=== PATIENT | male | born 1955 | race Caucasian/White ===

== ENCOUNTER 2018-02-23 07:53 | Inpatient (IN) | payer MEDICAID, MEDICARE ==
[2018-02-23 08:03] VITALS: O2SAT 100
--- NOTE | 2018-02-23 08:09 | ED PDOC ---
Psych Transfer Clearance - Clearance Statement Clearance Statement: Reviewed vital signs, lab results and transfer papers. Patient clinically stable for psychiatric admission. 'pt cleared kailyn syed
[2018-02-23] MEDS ORDERED: Alum-Mag Hydrox-Simethicone Susp (30 mL) PO PRN (08:47)
[2018-02-23] MEDS ORDERED: Magnesium Hydroxide Susp 30 ml UD PO PRN (08:47)
[2018-02-23] MEDS ORDERED: Bismuth Subsalicylate 262 mg/15 ml Sus (240 ml) PO PRN (08:47)
--- NOTE | 2018-02-23 12:00 | PCM.PSYCH ---
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 A + O x 3. PPHx: H/o treatment w/ Zoloft, but stopped taking it for unclear reasons; patient unable to explain why he stopped taking it. No history of psychiatric admission or suicide attempts. 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, HTN, HLD, Seizure disorder PSHx: Right frontal craniotomy, tonsilectomy, unknown right eye procedure FHx: Diabetes Social: Denies tobacco, EtOH or illicit drug use; lives w/ and daughter Current Medications: Active Medications Generic Name Dose Route Start Last Admin Trade Name Freq PRN Reason Stop Dose Admin Acetaminophen 650 mg 02/23/18 08:47 Tylenol 325mg Tab PO Q4 PRN Pain, moderate (4-7) Al Hydrox/Mg Hydrox/Simethicone 30 ml 02/23/18 08:47 Maalox Plus 30 Ml PO Q4 PRN Dyspepsia Bismuth Subsalicylate 524 mg 02/23/18 08:47 Pepto-Bismol PO Q4 PRN Diarrhea Lorazepam 0.5 mg 02/23/18 08:47 Ativan PO 03/09/18 08:48 HS PRN Insomnia Lorazepam 0.5 mg 02/23/18 08:47 Ativan PO 03/09/18 08:48 Q6 PRN Anixety/Agitation Magnesium Hydroxide 30 ml 02/23/18 08:47 Milk Of Magnesia PO HS PRN Constipation Past Psychiatric History - Past Psychiatric History Pertinent Medical Hx (Current Medical&Sleep Prob, Allergies): Allergies Allergy/AdvReac Type Severity Reaction Status Date / Time No Known Allergies Allergy Verified 02/22/18 21:12 Divalproex [Depakote DR] 500 mg PO BID 03/31/17 Levemir Flexpen 30 units SQ HS 03/31/17 Losartan [Cozaar] 100 mg PO DAILY 03/31/17 Oxcarbazepine [Trileptal] 150 mg PO DAILY 03/31/17 PrednisoLONE 1% [Pred Forte 1% Opht Susp] 1 drop OU DAILY 03/31/17 Aspirin [Aspirin Chewable] 81 mg PO DAILY #30 ctb 04/04/17 Docusate [Colace] 100 mg PO HS 05/24/17 Latanoprost 0.005% Opht [Xalatan Opht] 1 drop OU HS 05/24/17 Multivitamins [Hexavitamin] 1 tab PO DAILY tab 05/28/17 SITagliptin [Januvia] 100 mg PO DAILY tab 05/28/17 Sertraline [Zoloft] 50 mg PO DAILY tab 05/28/17 amLODIPine [Norvasc] 10 mg PO DAILY tab 05/28/17 metFORMIN ER [glucoPHAGE XR] 1,[address] 05/28/17 Atorvastatin Calcium 40 mg PO DAILY 07/13/17 Bisacodyl [Correctol] 5 mg PO DAILY 07/13/17 Dorzolamide 2% [Trusopt] 1 drop OU TID 07/13/17 Insulin Glargine,Hum.rec.anlog [Basaglar Kwikpen U-100] 30 units SC HS 07/13/17 Review of Systems - Psychiatric Psychiatric: As Per HPI, Abnormal Sleep Pattern, Anxiety, Behavioral Changes, Depression, Difficulty Concentrating, Memory Loss, Mood Swings, Suicidal Ideation Mental Status Examination - Personal Presentation Personal Presentation: Looks older than stated age - Affect Affect: Constricted, Depressed - Motor Activity Motor Activity: Calm - Reliability in Providing Information Reliability in Providing Information: Poor, due to cognitve impairment - Speech Speech: Coherent - Mood Mood: Depressed, Anxious - Formal Thought Process Formal Thought Process: Hallucinations - Hallucinations/Delusions Hallucinations: Auditory - Obsessions/Compulsions Obsessions: No Compulsions: No - Cognitive Functions Orientation: Person, Place, Situation, Time Sensorium: Alert Attention/Concentration: Attentive Judgement: Intact, as evidence by: Insight regarding need for hospitalization Memory: Recent intact, as evidence by: Ability to recall events of the day - Risk Risk: Suicidal, Diminished functioning - Strength & Assets Inventory Strength & Assets Inventory: Family support - Limitations Limitations: Decreased memory, recent DSM 5 DX - DSM 5 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
[2018-02-23] MEDS ORDERED: Divalproex 500 mg DR(BID formulation) PO SCH (12:30)
[2018-02-23] MEDS: Dorzolamide 2% Ophth Soln OU SCH ×2 (14:53→17:24)
[2018-02-23] MEDS: Multivitamin With Minerals Tab PO SCH (15:03)
[2018-02-23] MEDS: Divalproex 500 mg ER (ONCE DAILY formulation) PO SCH (15:04)
--- NOTE | 2018-02-23 18:59 | PCM.BM ---
<IvethFelicita - Last Filed: 02/23/18 19:06> Treatment Plan Problems - Problems identified on initial assessmt helplessness/hopelessness Date Initiated: 02/23/18 Time Initiated: 19:01 Assessment reference: HP, NA Status: Active suicidal ideation Date Initiated: 02/23/18 Time Initiated: 19:07 Assessment reference: HP, NA Status: Active Treatment assets and liabiliti Patient Assests: cooperative, educated, cognitively intact Patient Liabilities: financial problems, relationship conflicts, medical problems - Milieu Protocol Maintain good personal hygiene: daily Remind patient to perform daily oral care , daily Assist patient to perform ADL's Conduct patient checks and document Observation sheet: Q15 minutes Maintain personal safety: every shift Educate patient to report safety concerns to staff, every shift Monitor environment for contraband/sharps Medication safety: Monitor for expected outcome, potential side effects: every shift, Assess barriers to learning: every shift, Assess readiness for medication education: every shift Milieu Narrative: Major Depressive Disorder w/ Psychotic Features -Admit to psychiatry unit -Restart Zoloft 50 mg PO Daily -Start Risperdal 0.25 mg PO HS -Medicine consult -Neurology consult -Obtain collateral history -Disposition planning Discharge/Continuing Care - Treatment Team Participation Patient/Family/SO Statement: Major Depressive Disorder w/ Psychotic Features -Admit to psychiatry unit -Restart Zoloft 50 mg PO Daily -Start Risperdal 0.25 mg PO HS -Medicine consult -Neurology consult -Obtain collateral history -Disposition planning <Jolly Arcos - Last Filed: 02/24/18 08:51> - Diagnosis (1) Major depressive disorder with psychotic features Status: Acute Interventions: Medication management, Individual and group therapy, Psychoeducation 02/24/18 08:51 <Minnie Gerardo - Last Filed: 02/25/18 15:01> Family Contact Family involvement: Family/SO is involved Family contact: Patient agrees to contact, Family has been contacted by patient , Telephone contact initiated by staff Family contact name: Laquita - spouse Family contacted how many times per week?: 2 Discharge/Continuing Care - Education Needs Education Needs: Family Medication, Family Diagnosis/Disease Process, Family Coping Skills, Family Community resources, Family Activities of Daily Living, Family Nutrition, Family Uses of Medical Equipment, Family Health Practices/ Safety, Family Personal Hygiene/Grooming, Family Aftercare Safety Plan, Patient Medication, Patient Diagnosis/Disease Process, Patient Coping Skills, Patient Community resources, Patient Activities of Daily Living, Patient Nutrition, Patient Uses of Medical Equipment, Patient Health Practices/Safety, Patient Personal Hygiene/Grooming, Patient Aftercare Safety Plan - Discharge Discharge Criteria: Tolerates medication w/o severe side effects, Free of Suicidal thoughts, Normal sleep pattern, Ability to care for self, Reduction of target symptoms Discharge to:: Home, With Family - Additional Comments 02/25/18 14:49 Pt seen and discussed in team meeting. Reason for hospitalization reviewed and discussed. Pt reported feeling depressed and having suicide thoughts in the context of his physical disabilities. Pt's social and medical issues reviewed and discussed. Pt's medications reviewed. Tx plan reviewed and discussed, pt is agreeable. SW to continue to follow case. - Treatment Team Participation Discussed with Family/SO: No Was Patient/Family/SO present at Treatment Team Meeting: Yes
[2018-02-24 07:42] LABS: HEMOGLOBIN 10.6 g/dL (12.0-18.0); MEAN CELL VOLUME 90.4 fl (80.0-94.0); MEAN CORPUSCULAR HEMOGLOBIN 31.6 pg (27.0-31.0); MEAN CORPUSCULAR HGB CONC 34.9 g/dL (33.0-37.0); RBC 3.35 Mil/uL (4.40-5.90); WHITE BLOOD COUNT 5.1 K/uL (4.8-10.8)
[2018-02-24 07:48] LABS: ALB/GLOB RATIO 1.6 (1.0-2.1); ALBUMIN 3.6 g/dL (3.5-5.0); ALT/SGPT 30 U/L (21-72); AST/SGOT 20 U/L (17-59); BLOOD UREA NITROGEN 24 mg/dl (9-20); CALCIUM 9.4 mg/dL (8.4-10.2); GFR NON-AFRICAN AMERICAN > 60; HDL CHOLESTEROL 47 MG/DL (30-70)
[2018-02-24 07:54] LABS: VALPROIC ACID 30.2 ug/mL (50.0-100.0)
[2018-02-24 07:59] LABS: LDL CHOLESTEROL 40 mg/dL (0-129)
[2018-02-24 08:02] LABS: T4 5.64 ug/dl (5.5-11.0)
[2018-02-24] MEDS: Divalproex 500 mg ER (ONCE DAILY formulation) PO SCH (08:12)
[2018-02-24] MEDS: Multivitamin With Minerals Tab PO SCH (08:13)
[2018-02-24] MEDS: Dorzolamide 2% Ophth Soln OU SCH ×3 (08:14→17:07)
--- NOTE | 2018-02-24 09:07 | PCM.PYCHPN ---
Psychiatric Progress Note - Psychiatric Progress Note Patient seen today, length of contact: Pt evaluated, case discussed w/ team Patient Chief Complaint: "I was having suicidal thoughts." Problems Identified/Issues Discussed: Patient reports that he continues to feel depressed, but is able to contract for safety at this time and denies acute suicidal ideation/plan/intent. He denies acute AH. He denies adverse effects to medication. He continues to have constricted/depressed affect. Medication Change: No Medical Record Reviewed: Yes Consults ordered or reviewed: Medicine consult, Neurology consult Mental Status Examination - Cognitive Function Orientation: Person, Place, Situation, Time Association: WNL Decription of patient's judgement and insights: Fair I/J - Mood Mood: Depressed, Anxious - Affect Affect: Constricted, Depressed - Formal Thought Process Formal Thought Process: No Impairment Psychotic Thoughts and Behaviors: Denies acute AH/VH/paranoia - Suicidal Ideation Suicidal Ideation: No - Homicidal Ideation Homicidal Ideation: No Goal/Treatment Plan - Goal/Treatment Plan Need for Continued Stay: Remain at risks for inpatient hospitalization, Severe depression anxiety, Severe functional impairment Progress Toward Problem(s) and Goals/Treatment Plan: Major Depressive Disorder w/ Psychotic Features -Continue Zoloft 50 mg PO Daily -Continue Risperdal 0.25 mg PO HS -Medicine consult -Neurology consult -PT/OT -Obtain collateral history -Disposition planning Estimated Date of D/C: 03/02/18
[2018-02-24 09:38] LABS: URINE BILIRUBIN NEGATIVE (NEGATIVE); URINE BLOOD NEGATIVE (NEGATIVE); URINE CLARITY CLEAR (Clear); URINE COLOR YELLOW (YELLOW); URINE GLUCOSE (UA) 50 mg/dL (Normal); URINE LEUKOCYTE ESTERASE NEG Leu/uL (Negative); URINE PROTEIN NEGATIVE (NEGATIVE); URINE UROBILINOGEN 0.2-1.0 mg/dL (0.2-1.0)
[2018-02-24] MEDS: Insulin Regular 100 units/ml SC SCH ×3 (12:22→21:09)
[2018-02-24 13:45] VITALS: BMI 28.1
[2018-02-24 18:53] LABS: FOLATE 9.8 ng/mL
[2018-02-24] MEDS: Insulin Detemir 100 Units/ml Inj SC SCH (21:08)
[2018-02-24] MEDS ORDERED: INSULIN GLARGINE HUM REC ANLOG 30 UNIT SC SCH (22:00)
--- NOTE | 2018-02-24 22:16 | CP.PCM.CON ---
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 A + O x 3. PPHx: H/o treatment w/ Zoloft, but stopped taking it for unclear reasons; patient unable to explain why he stopped taking it. No history of psychiatric admission or suicide attempts. 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 No deficits noted. Gait normal. +2 dtr ul and llbl.Toes downgoing. Past Patient History - Infectious Disease Hx of Infectious Diseases: None - Tetanus Immunizations Tetanus Immunization: Unknown - Past Medical History & Family History Past Medical History?: Yes - Past Social History Smoking Status: Never Smoked - CARDIAC Hx Hypertension: Yes - PULMONARY Hx Respiratory Disorders: No - NEUROLOGICAL HX Cerebrovascular Accident: Yes - HEENT Hx HEENT Problems: Yes (right eye blind) - RENAL Hx Chronic Kidney Disease: No - ENDOCRINE/METABOLIC Hx Endocrine Disorders: Yes Hx Diabetes Mellitus Type 2: Yes - HEMATOLOGICAL/ONCOLOGICAL Hx Blood Disorders: No Hx Cancer: No Hx Human Immunodeficiency Virus (HIV): No - INTEGUMENTARY Hx Dermatological Problems: No - MUSCULOSKELETAL/RHEUMATOLOGICAL Hx Arthritis: Yes (BACK) Hx Falls: No Hx Unsteady Gait: Yes (left side weak) - GASTROINTESTINAL Hx Gastrointestinal Disorders: No HX Swallowing Problems: No - GENITOURINARY/GYNECOLOGICAL Hx Genitourinary Disorders: Yes Hx Incontinence: Yes Hx Sexually Transmitted Disorders: No - PSYCHIATRIC Hx Anxiety: Yes Hx Depression: Yes Hx Physical Abuse: No Hx Sexual Abuse: No Hx Substance Use: No - SURGICAL HISTORY Hx Surgeries: Yes Hx Tonsillectomy: Yes Hx Vascular Surgery: Yes (right brain) - ANESTHESIA Hx Anesthesia: Yes Hx Anesthesia Reactions: Yes (vomiting) Hx Malignant Hyperthermia: No Meds Allergies/Adverse Reactions: Allergies Allergy/AdvReac Type Severity Reaction Status Date / Time No Known Allergies Allergy Verified 02/22/18 21:12 - Medications Medications: Current Medications Acetaminophen (Tylenol 325mg Tab) 650 mg PO Q4 PRN PRN Reason: Pain, moderate (4-7) Last Admin: 02/24/18 12:20 Dose: 650 mg Al Hydrox/Mg Hydrox/Simethicone (Maalox Plus 30 Ml) 30 ml PO Q4 PRN PRN Reason: Dyspepsia Amlodipine Besylate (Norvasc) 10 mg PO DAILY [facility] Last Admin: 02/24/18 08:13 Dose: 10 mg Aspirin (Aspirin Chewable) 81 mg PO DAILY [facility] Last Admin: 02/24/18 08:10 Dose: 81 mg Atorvastatin Calcium (Lipitor) 10 mg PO DAILY [facility] Last Admin: 02/24/18 08:13 Dose: 10 mg Bismuth Subsalicylate (Pepto-Bismol) 524 mg PO Q4 PRN PRN Reason: Diarrhea Divalproex Sodium (Depakote Er(Once Daily)) 500 mg PO DAILY [facility] Last Admin: 02/24/18 08:12 Dose: 500 mg Docusate Sodium (Colace) 100 mg PO HS [facility] Last Admin: 02/24/18 21:03 Dose: 100 mg Dorzolamide HCl (Trusopt) 1 drop OU TID [facility] Last Admin: 02/24/18 17:07 Dose: 1 drop Insulin Detemir (Levemir) 30 units SC HS [facility] Last Admin: 02/24/18 21:08 Dose: 30 units Insulin Human Regular (Humulin R) 0 units SC ACHS [facility] PRN Reason: Protocol Last Admin: 02/24/18 21:09 Dose: Not Given Lorazepam (Ativan) 0.5 mg PO HS PRN PRN Reason: Insomnia Stop: 03/09/18 08:48 Lorazepam (Ativan) 0.5 mg PO Q6 PRN PRN Reason: Anixety/Agitation Stop: 03/09/18 08:48 Losartan Potassium (Cozaar) 100 mg PO DAILY [facility] Last Admin: 02/24/18 08:10 Dose: 100 mg Magnesium Hydroxide (Milk Of Magnesia) 30 ml PO HS PRN PRN Reason: Constipation Metformin HCl (Glucophage) 500 mg PO BIDWM [facility] Last Admin: 02/24/18 17:04 Dose: 500 mg Multivitamins/Minerals (Therapeutic-M Tab) 1 tab PO DAILY [facility] Last Admin: 02/24/18 08:13 Dose: 1 tab Oxcarbazepine (Trileptal) 300 mg PO BID [facility] Last Admin: 02/24/18 17:06 Dose: 300 mg Risperidone (Risperdal Tab) 0.25 mg PO HS [facility] Last Admin: 02/24/18 21:03 Dose: 0.25 mg Sertraline HCl (Zoloft) 50 mg PO DAILY [facility] Last Admin: 02/24/18 08:15 Dose: 50 mg Sitagliptin Phosphate (Januvia) 100 mg PO DAILY [facility] Last Admin: 02/24/18 08:12 Dose: 100 mg Results - Vital Signs Recent Vital Signs: Last Vital Signs Temp 99 F 02/24/18 15:46 Pulse 90 02/24/18 15:46 Resp 18 02/24/18 15:46 BP 135/82 02/24/18 15:46 Pulse Ox 100 02/23/18 08:01 - Labs Result Diagrams: 02/24/18 07:14 02/24/18 07:14 Labs: Laboratory Results - last 24 hr 02/23/18 02/24/18 02/24/18 09:29 07:14 07:14 WBC 5.1 RBC 3.35 L Hgb 10.6 L Hct 30.3 L MCV 90.4 MCH 31.6 H MCHC 34.9 RDW 14.0 Plt Count 182 Sodium 139 Potassium 4.2 Chloride 103 Carbon Dioxide 30 Anion Gap 10 BUN 24 H Creatinine 0.6 L Est GFR ( Amer) > 60 Est GFR (Non-Af Amer) > 60 POC Glucose (mg/dL) Random Glucose 184 H Hemoglobin A1c Calcium 9.4 Total Bilirubin 0.2 AST 20 ALT 30 Alkaline Phosphatase 50 Total Protein 5.8 L Albumin 3.6 Globulin 2.2 Albumin/Globulin Ratio 1.6 Triglycerides 165 H Cholesterol 116 LDL Cholesterol Direct 40 HDL Cholesterol 47 Vitamin B12 550 25-OH Vitamin D Total Folate 9.8 Free T4 Thyroxine (T4) 5.64 TSH 3rd Generation 2.86 Urine Color Yellow Urine Clarity Clear Urine pH 5.0 Ur Specific Brethren 1.018 Urine Protein Negative Urine Glucose (UA) 50 Urine Ketones Trace Urine Blood Negative Urine Nitrate Negative Urine Bilirubin Negative Urine Urobilinogen 0.2-1.0 Ur Leukocyte Esterase Neg Urine RBC (Auto) < 1 Urine Microscopic WBC 1 Valproic Acid RPR 02/24/18 02/24/18 02/24/18 07:14 07:14 07:20 WBC RBC Hgb Hct MCV MCH MCHC RDW Plt Count Sodium Potassium Chloride Carbon Dioxide Anion Gap BUN Creatinine Est GFR ( Amer) Est GFR (Non-Af Amer) POC Glucose (mg/dL) Random Glucose Hemoglobin A1c 6.1 Calcium Total Bilirubin AST ALT Alkaline Phosphatase Total Protein Albumin Globulin Albumin/Globulin Ratio Triglycerides Cholesterol LDL Cholesterol Direct HDL Cholesterol Vitamin B12 25-OH Vitamin D Total < 12.8 L Folate Free T4 0.81 Thyroxine (T4) TSH 3rd Generation Urine Color Urine Clarity Urine pH Ur Specific Brethren Urine Protein Urine Glucose (UA) Urine Ketones Urine Blood Urine Nitrate Urine Bilirubin Urine Urobilinogen Ur Leukocyte Esterase Urine RBC (Auto) Urine Microscopic WBC Valproic Acid 30.2 L RPR 02/24/18 02/24/18 02/24/18 07:20 09:24 12:20 WBC RBC Hgb Hct MCV MCH MCHC RDW Plt Count Sodium Potassium Chloride Carbon Dioxide Anion Gap BUN Creatinine Est GFR ( Amer) Est GFR (Non-Af Amer) POC Glucose (mg/dL) 263 H 280 H Random Glucose Hemoglobin A1c Calcium Total Bilirubin AST ALT Alkaline Phosphatase Total Protein Albumin Globulin Albumin/Globulin Ratio Triglycerides Cholesterol LDL Cholesterol Direct HDL Cholesterol Vitamin B12 25-OH Vitamin D Total Folate Free T4 Thyroxine (T4) TSH 3rd Generation Urine Color Urine Clarity Urine pH Ur Specific Brethren Urine Protein Urine Glucose (UA) Urine Ketones Urine Blood Urine Nitrate Urine Bilirubin Urine Urobilinogen Ur Leukocyte Esterase Urine RBC (Auto) Urine Microscopic WBC Valproic Acid RPR Nonreactive 02/24/18 02/24/18 15:41 20:08 WBC RBC Hgb Hct MCV MCH MCHC RDW Plt Count Sodium Potassium Chloride Carbon Dioxide Anion Gap BUN Creatinine Est GFR ( Amer) Est GFR (Non-Af Amer) POC Glucose (mg/dL) 175 H 224 H Random Glucose Hemoglobin A1c Calcium Total Bilirubin AST ALT Alkaline Phosphatase Total Protein Albumin Globulin Albumin/Globulin Ratio Triglycerides Cholesterol LDL Cholesterol Direct HDL Cholesterol Vitamin B12 25-OH Vitamin D Total Folate Free T4 Thyroxine (T4) TSH 3rd Generation Urine Color Urine Clarity Urine pH Ur Specific Brethren Urine Protein Urine Glucose (UA) Urine Ketones Urine Blood Urine Nitrate Urine Bilirubin Urine Urobilinogen Ur Leukocyte Esterase Urine RBC (Auto) Urine Microscopic WBC Valproic Acid RPR Assessment & Plan - Assessment and Plan (Free Text) Assessment: 62 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 Plan: 1. Continue depakote and trileptal. 2. Depakote and trileptal levels. 3. EEG. Thank you Dr iglesias
[2018-02-25] MEDS: Dorzolamide 2% Ophth Soln OU SCH ×3 (08:16→16:06)
[2018-02-25] MEDS: Divalproex 500 mg ER (ONCE DAILY formulation) PO SCH (08:19)
[2018-02-25] MEDS: Insulin Regular 100 units/ml SC SCH ×4 (08:20→21:14)
[2018-02-25] MEDS: Multivitamin With Minerals Tab PO SCH (08:22)
--- NOTE | 2018-02-25 09:25 | CON ---
DATE: 02/24/2018 INITIAL CONSULTATION HISTORY OF PRESENT ILLNESS: This is a 62-year-old male with a history of multiple medical problems who was admitted to psychiatric green for depression. Medical consultation was called for medical followup while the patient is in the psychiatry floor. The patient had history of intracerebral bleed, status post craniotomy. The patient is legally blind in both eyes. The patient has a history of fall with inability to walk for one year. The patient denied having any chest pain, shortness of breath, nausea, vomiting, or GI symptoms. Other review of systems is negative. ALLERGIES: NO KNOWN ALLERGIES. MEDICATIONS: Reviewed as per MAR. PAST MEDICAL HISTORY: Type 2 diabetes mellitus, status post craniotomy for intracerebral bleeding, hypertension, hypercholesterolemia, legally blind. SOCIAL HISTORY: No history of smoking, EtOH, or substance abuse. FAMILY HISTORY: Noncontributory. PHYSICAL EXAMINATION: GENERAL: The patient is in bed, not in any cardiopulmonary distress. VITAL SIGNS: Blood pressure 121/85, temperature 99, respiratory rate 18, and pulse 86. HEENT: The patient is legally blind in both eyes. Normal-appearing mucosa of the conjunctivae, oropharynx, and nasal membrane mucosa. NECK: Supple. No JVD. No carotid bruit. No lymph node. No thyromegaly. CHEST AND LUNGS: Bilateral symmetrical expansion. Good air exchange. No rales. No rhonchi. CARDIOVASCULAR SYSTEM: PMI not localized. S1, S2. No additional sounds. ABDOMEN: Normoactive bowel sounds. No tenderness. No organomegaly. No masses. EXTREMITIES: No cyanosis, no clubbing, no edema. There is left upper extremity weakness compared to the right, and there is equal strength of both lower extremities, 3 to 4/5. ASSESSMENT: Type 2 diabetes mellitus, legally blind, status post craniotomy for intracerebral bleeding, history of depression. PLAN: Continue current medication. We will resume the patient's medications at home. Accu-Cheks with insulin coverage. Physical therapy. We will follow up with you. Vitor Dover MD
[2018-02-25] MEDS ORDERED: Valproic Acid 250 mg/5 ml UD Cup PO ONE (10:00)
--- NOTE | 2018-02-25 10:45 | PCM.PYCHPN ---
Psychiatric Progress Note - Psychiatric Progress Note Patient seen today, length of contact: Pt evaluated, case discussed w/ team, chart reviewed Patient Chief Complaint: "I was having suicidal thoughts." Problems Identified/Issues Discussed: Patient reports that he continues to feel depressed, but denies acute suicidal ideation/plan/intent. He denies acute AH. He denies adverse effects to medication. He continues to have constricted/depressed affect. Medication Change: No Medical Record Reviewed: Yes Consults ordered or reviewed: Medicine consult, Neurology consult Mental Status Examination - Cognitive Function Orientation: Person, Place, Situation, Time Association: WNL Decription of patient's judgement and insights: Fair I/J - Mood Mood: Depressed, Anxious - Affect Affect: Constricted, Depressed - Formal Thought Process Formal Thought Process: No Impairment Psychotic Thoughts and Behaviors: Denies acute AH/VH/paranoia - Suicidal Ideation Suicidal Ideation: No - Homicidal Ideation Homicidal Ideation: No Goal/Treatment Plan - Goal/Treatment Plan Need for Continued Stay: Remain at risks for inpatient hospitalization, Severe depression anxiety, Severe functional impairment Progress Toward Problem(s) and Goals/Treatment Plan: Major Depressive Disorder w/ Psychotic Features -Continue Zoloft 50 mg PO Daily -Continue Risperdal 0.25 mg PO HS -Medicine consult -Neurology consult -PT/OT -Obtain collateral history -Disposition planning Estimated Date of D/C: 03/01/18
--- NOTE | 2018-02-25 10:47 | CP.PCM.PN ---
Subjective - Date & Time of Evaluation Date of Evaluation: 02/25/18 Time of Evaluation: 10:43 - Subjective Subjective: Mr. Nugent was seen and examined at the bedside. He is alert,oriented x 3. He is able to verbalize the reason why he is being admitted. He denies any headache, dizziness, nausea. He follows simple commands. There was no untoward events overnight. Objective - Vital Signs/Intake and Output Vital Signs (last 24 hours): Temp Pulse Resp BP Pulse Ox 97.1 F L 82 19 129/80 100 02/25/18 05:48 02/25/18 08:21 02/25/18 05:48 02/25/18 08:21 02/23/18 08:01 - Medications Medications: Current Medications Acetaminophen (Tylenol 325mg Tab) 650 mg PO Q4 PRN PRN Reason: Pain, moderate (4-7) Last Admin: 02/24/18 22:43 Dose: 650 mg Al Hydrox/Mg Hydrox/Simethicone (Maalox Plus 30 Ml) 30 ml PO Q4 PRN PRN Reason: Dyspepsia Amlodipine Besylate (Norvasc) 10 mg PO DAILY [facility] Last Admin: 02/25/18 08:21 Dose: 10 mg Aspirin (Aspirin Chewable) 81 mg PO DAILY [facility] Last Admin: 02/25/18 08:18 Dose: 81 mg Atorvastatin Calcium (Lipitor) 10 mg PO DAILY [facility] Last Admin: 02/25/18 08:21 Dose: 10 mg Bismuth Subsalicylate (Pepto-Bismol) 524 mg PO Q4 PRN PRN Reason: Diarrhea Divalproex Sodium (Depakote Er(Once Daily)) 500 mg PO DAILY [facility] Last Admin: 02/25/18 08:19 Dose: 500 mg Docusate Sodium (Colace) 100 mg PO HS [facility] Last Admin: 02/24/18 21:03 Dose: 100 mg Dorzolamide HCl (Trusopt) 1 drop OU TID [facility] Last Admin: 02/25/18 08:16 Dose: 1 drop Insulin Detemir (Levemir) 30 units SC HS [facility] Last Admin: 02/24/18 21:08 Dose: 30 units Insulin Human Regular (Humulin R) 0 units SC [facility] PRN Reason: Protocol Last Admin: 02/25/18 08:20 Dose: 2 units Lorazepam (Ativan) 0.5 mg PO HS PRN PRN Reason: Insomnia Stop: 03/09/18 08:48 Lorazepam (Ativan) 0.5 mg PO Q6 PRN PRN Reason: Anixety/Agitation Stop: 03/09/18 08:48 Losartan Potassium (Cozaar) 100 mg PO DAILY [facility] Last Admin: 02/25/18 08:18 Dose: 100 mg Magnesium Hydroxide (Milk Of Magnesia) 30 ml PO HS PRN PRN Reason: Constipation Metformin HCl (Glucophage) 500 mg PO BIDWM [facility] Last Admin: 02/25/18 08:19 Dose: 500 mg Multivitamins/Minerals (Therapeutic-M Tab) 1 tab PO DAILY [facility] Last Admin: 02/25/18 08:22 Dose: 1 tab Oxcarbazepine (Trileptal) 300 mg PO BID [facility] Last Admin: 02/25/18 08:22 Dose: 300 mg Risperidone (Risperdal Tab) 0.25 mg PO [facility] Last Admin: 02/24/18 21:03 Dose: 0.25 mg Sertraline HCl (Zoloft) 50 mg PO DAILY [facility] Last Admin: 02/25/18 08:22 Dose: 50 mg Sitagliptin Phosphate (Januvia) 100 mg PO DAILY [facility] Last Admin: 02/25/18 08:21 Dose: 100 mg - Labs Labs: 02/24/18 07:14 02/24/18 07:14 - Constitutional Appears: No Acute Distress - Head Exam Head Exam: NORMAL INSPECTION - Eye Exam Pupil Exam: PERRL - Neurological Exam Neurological Exam: Alert, Awake, Oriented x3 Neuro motor strength exam: Left Upper Extremity: 4, Right Upper Extremity: 4, Left Lower Extremity: 4, Right Lower Extremity: 4 Additional comments: alert, oriented, follows commands. Assessment and Plan (1) Seizure Assessment & Plan: Continue all current medical regimen. Recommend depakote 1000 mg PO for one dose , hydration, EEG Status: Acute
--- NOTE | 2018-02-25 13:09 | CP.PCM.CON ---
History of Present Illness - History of Present Illness History of Present Illness: Pt is a 62 year old male admitted to [facility] and referred to the telegraphic typewriter operator for evaluation. Only portions of the DRS was administered due to patient's visual deficits. Pt's Attention skills, Initiation skills and conceptualization skills fell in the Deficient Range. Memory skills fell within normal limits. Construction skills were not administered. Deficits in cognition were evident- particularly conceptualization, and initation. Note, pt reported a CVA last year likely influencing the above. Thank you for this referral, Dr. Marmolejo Past Patient History - Infectious Disease Hx of Infectious Diseases: None - Tetanus Immunizations Tetanus Immunization: Unknown - Past Medical History & Family History Past Medical History?: Yes - Past Social History Smoking Status: Never Smoked - CARDIAC Hx Hypertension: Yes - PULMONARY Hx Respiratory Disorders: No - NEUROLOGICAL HX Cerebrovascular Accident: Yes - HEENT Hx HEENT Problems: Yes (right eye blind) - RENAL Hx Chronic Kidney Disease: No - ENDOCRINE/METABOLIC Hx Endocrine Disorders: Yes Hx Diabetes Mellitus Type 2: Yes - HEMATOLOGICAL/ONCOLOGICAL Hx Blood Disorders: No Hx Cancer: No Hx Human Immunodeficiency Virus (HIV): No - INTEGUMENTARY Hx Dermatological Problems: No - MUSCULOSKELETAL/RHEUMATOLOGICAL Hx Arthritis: Yes (BACK) Hx Falls: No Hx Unsteady Gait: Yes (left side weak) - GASTROINTESTINAL Hx Gastrointestinal Disorders: No HX Swallowing Problems: No - GENITOURINARY/GYNECOLOGICAL Hx Genitourinary Disorders: Yes Hx Incontinence: Yes Hx Sexually Transmitted Disorders: No - PSYCHIATRIC Hx Anxiety: Yes Hx Depression: Yes Hx Physical Abuse: No Hx Sexual Abuse: No Hx Substance Use: No - SURGICAL HISTORY Hx Surgeries: Yes Hx Tonsillectomy: Yes Hx Vascular Surgery: Yes (right brain) - ANESTHESIA Hx Anesthesia: Yes Hx Anesthesia Reactions: Yes (vomiting) Hx Malignant Hyperthermia: No Meds Allergies/Adverse Reactions: Allergies Allergy/AdvReac Type Severity Reaction Status Date / Time No Known Allergies Allergy Verified 02/22/18 21:12 - Medications Medications: Current Medications Acetaminophen (Tylenol 325mg Tab) 650 mg PO Q4 PRN PRN Reason: Pain, moderate (4-7) Last Admin: 02/24/18 22:43 Dose: 650 mg Al Hydrox/Mg Hydrox/Simethicone (Maalox Plus 30 Ml) 30 ml PO Q4 PRN PRN Reason: Dyspepsia Amlodipine Besylate (Norvasc) 10 mg PO DAILY [facility] Last Admin: 02/25/18 08:21 Dose: 10 mg Aspirin (Aspirin Chewable) 81 mg PO DAILY [facility] Last Admin: 02/25/18 08:18 Dose: 81 mg Atorvastatin Calcium (Lipitor) 10 mg PO DAILY [facility] Last Admin: 02/25/18 08:21 Dose: 10 mg Bismuth Subsalicylate (Pepto-Bismol) 524 mg PO Q4 PRN PRN Reason: Diarrhea Divalproex Sodium (Depakote Er(Once Daily)) 500 mg PO DAILY [facility] Last Admin: 02/25/18 08:19 Dose: 500 mg Docusate Sodium (Colace) 100 mg PO HS [facility] Last Admin: 02/24/18 21:03 Dose: 100 mg Dorzolamide HCl (Trusopt) 1 drop OU TID [facility] Last Admin: 02/25/18 08:16 Dose: 1 drop Insulin Detemir (Levemir) 30 units SC HS [facility] Last Admin: 02/24/18 21:08 Dose: 30 units Insulin Human Regular (Humulin R) 0 units SC [facility] PRN Reason: Protocol Last Admin: 02/25/18 11:35 Dose: 2 units Lorazepam (Ativan) 0.5 mg PO HS PRN PRN Reason: Insomnia Stop: 03/09/18 08:48 Lorazepam (Ativan) 0.5 mg PO Q6 PRN PRN Reason: Anixety/Agitation Stop: 03/09/18 08:48 Losartan Potassium (Cozaar) 100 mg PO DAILY [facility] Last Admin: 02/25/18 08:18 Dose: 100 mg Magnesium Hydroxide (Milk Of Magnesia) 30 ml PO HS PRN PRN Reason: Constipation Metformin HCl (Glucophage) 500 mg PO BIDWM [facility] Last Admin: 02/25/18 08:19 Dose: 500 mg Multivitamins/Minerals (Therapeutic-M Tab) 1 tab PO DAILY [facility] Last Admin: 02/25/18 08:22 Dose: 1 tab Oxcarbazepine (Trileptal) 300 mg PO BID [facility] Last Admin: 02/25/18 08:22 Dose: 300 mg Risperidone (Risperdal Tab) 0.25 mg PO HS [facility] Last Admin: 02/24/18 21:03 Dose: 0.25 mg Sertraline HCl (Zoloft) 50 mg PO DAILY [facility] Last Admin: 02/25/18 08:22 Dose: 50 mg Sitagliptin Phosphate (Januvia) 100 mg PO DAILY [facility] Last Admin: 02/25/18 08:21 Dose: 100 mg Results - Vital Signs Recent Vital Signs: Last Vital Signs Temp 97.1 F L 02/25/18 05:48 Pulse 82 02/25/18 08:21 Resp 19 02/25/18 05:48 BP 129/80 02/25/18 08:21 Pulse Ox 100 02/23/18 08:01 - Labs Result Diagrams: 02/24/18 07:14 02/24/18 07:14 Labs: Laboratory Results - last 24 hr 02/24/18 02/24/18 02/24/18 07:14 07:14 07:20 POC Glucose (mg/dL) Hemoglobin A1c 6.1 25-OH Vitamin D Total < 12.8 L Folate 9.8 RPR 02/24/18 02/24/18 02/24/18 07:20 15:41 20:08 POC Glucose (mg/dL) 175 H 224 H Hemoglobin A1c 25-OH Vitamin D Total Folate RPR Nonreactive 02/25/18 02/25/18 05:55 11:14 POC Glucose (mg/dL) 161 H 159 H Hemoglobin A1c 25-OH Vitamin D Total Folate RPR
[2018-02-25] MEDS: Insulin Detemir 100 Units/ml Inj SC SCH (21:12)
[2018-02-26] MEDS: Multivitamin With Minerals Tab PO SCH (08:32)
[2018-02-26] MEDS: Dorzolamide 2% Ophth Soln OU SCH ×3 (08:34→16:30)
[2018-02-26] MEDS: Insulin Regular 100 units/ml SC SCH ×4 (08:35→21:21)
[2018-02-26] MEDS: Divalproex 500 mg ER (ONCE DAILY formulation) PO SCH (09:00)
--- NOTE | 2018-02-26 10:20 | PCM.PYCHPN ---
Psychiatric Progress Note - Psychiatric Progress Note Patient seen today, length of contact: Pt evaluated, case discussed w/ team, chart reviewed Patient Chief Complaint: "I was having suicidal thoughts." Problems Identified/Issues Discussed: Patient had poor sleep last night. He reports that he continues to feel depressed, but denies acute suicidal ideation/plan/intent. He denies acute AH. He denies adverse effects to medication. He continues to have constricted/ depressed affect. Medication Change: No Medical Record Reviewed: Yes Consults ordered or reviewed: Medicine consult, Neurology consult Psychology consult: Pt is a 62 year old male admitted to [facility] and referred to the group underwriter for evaluation. Only portions of the DRS was administered due to patient's visual deficits. Pt's Attention skills, Initiation skills and conceptualization skills fell in the Deficient Range. Memory skills fell within normal limits. Construction skills were not administered. Deficits in cognition were evident- particularly conceptualization, and initation. Note, pt reported a CVA last year likely influencing the above. Thank you for this referral, Dr. Marmolejo Mental Status Examination - Cognitive Function Orientation: Person, Place, Situation, Time Memory: Impaired Association: WNL Decription of patient's judgement and insights: Limited I/J - Mood Mood: Depressed, Anxious - Affect Affect: Constricted, Depressed - Formal Thought Process Formal Thought Process: No Impairment Psychotic Thoughts and Behaviors: Denies acute AH/VH/paranoia - Suicidal Ideation Suicidal Ideation: No - Homicidal Ideation Homicidal Ideation: No Goal/Treatment Plan - Goal/Treatment Plan Need for Continued Stay: Remain at risks for inpatient hospitalization, Severe depression anxiety, Severe functional impairment Progress Toward Problem(s) and Goals/Treatment Plan: Major Depressive Disorder w/ Psychotic Features -Continue Zoloft 50 mg PO Daily -Continue Risperdal 0.25 mg PO HS -Medicine consult -Neurology consult -Psychology consult -PT/OT -Disposition planning Estimated Date of D/C: 03/01/18
--- NOTE | 2018-02-26 18:56 | PN ---
DATE: 02/25/2018 SUBJECTIVE: The patient was seen on 02/25/2018 in the psych green. He offered no complaint. PHYSICAL EXAMINATION: VITAL SIGNS: Blood pressure was 120/80, temperature 97.1, respiratory rate 19, and pulse 82. HEENT: Blindness of both eyes. NECK: Supple. No JVD. No carotid bruit. No lymph node. No thyromegaly. CHEST AND LUNGS: Bilateral symmetrical expansion. Good air exchange. No rales, no rhonchi. CARDIOVASCULAR: PMI not localized. S1, S2. No additional sounds. ABDOMEN: Normoactive bowel sounds. No tenderness. No organomegaly. No masses. EXTREMITIES: No cyanosis, no clubbing, no edema. OCCUPATIONAL MEDICINE OFFICER: Awake, alert, oriented x2, and the patient has left-sided hemiparesis. ASSESSMENT: 1. 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 2. Blindness. 3. Type 2 diabetes mellitus. PLAN: Continue current medications including insulin coverage according to the Accu-Cheks, and we will follow with you. Vitor Dover MD
[2018-02-26] MEDS: Insulin Detemir 100 Units/ml Inj SC SCH (21:21)
--- NOTE | 2018-02-27 08:49 | PCM.PYCHPN ---
Psychiatric Progress Note - Psychiatric Progress Note Patient seen today, length of contact: Pt evaluated, case discussed w/ team, chart reviewed Patient Chief Complaint: "I was having suicidal thoughts." Problems Identified/Issues Discussed: Patient has improved sleep last night. He reports that his mood is starting to improve and he feels less depressed. No suicidal ideation/plan/intent. He denies acute AH. He denies adverse effects to medication. He continues to have constricted/depressed affect. Medication Change: No Medical Record Reviewed: Yes Consults ordered or reviewed: Medicine consult, Neurology consult Psychology consult: Pt is a 62 year old male admitted to [facility] and referred to the business writer for evaluation. Only portions of the DRS was administered due to patient's visual deficits. Pt's Attention skills, Initiation skills and conceptualization skills fell in the Deficient Range. Memory skills fell within normal limits. Construction skills were not administered. Deficits in cognition were evident- particularly conceptualization, and initation. Note, pt reported a CVA last year likely influencing the above. Thank you for this referral, Dr. Marmolejo Mental Status Examination - Cognitive Function Orientation: Person, Place, Situation, Time Memory: Impaired Association: WNL Decription of patient's judgement and insights: Limited I/J - Mood Mood: Depressed - Affect Affect: Constricted, Depressed - Formal Thought Process Formal Thought Process: No Impairment Psychotic Thoughts and Behaviors: Denies acute AH/VH/paranoia - Suicidal Ideation Suicidal Ideation: No - Homicidal Ideation Homicidal Ideation: No Goal/Treatment Plan - Goal/Treatment Plan Need for Continued Stay: Remain at risks for inpatient hospitalization, Severe depression anxiety, Severe functional impairment Progress Toward Problem(s) and Goals/Treatment Plan: Major Depressive Disorder w/ Psychotic Features -Continue Zoloft 50 mg PO Daily -Continue Risperdal 0.25 mg PO HS -Medicine consult -Neurology consult -Psychology consult -PT/OT -Disposition planning Estimated Date of D/C: 03/01/18
[2018-02-27] MEDS: Multivitamin With Minerals Tab PO SCH (08:58)
[2018-02-27] MEDS: Divalproex 500 mg ER (ONCE DAILY formulation) PO SCH (08:59)
[2018-02-27] MEDS: Dorzolamide 2% Ophth Soln OU SCH ×3 (08:59→16:57)
[2018-02-27] MEDS: Insulin Regular 100 units/ml SC SCH ×4 (09:00→21:04)
[2018-02-27] MEDS: Insulin Detemir 100 Units/ml Inj SC SCH (21:03)
[2018-02-28] MEDS: Dorzolamide 2% Ophth Soln OU SCH ×3 (08:10→16:46)
[2018-02-28] MEDS: Multivitamin With Minerals Tab PO SCH (08:10)
[2018-02-28] MEDS: Divalproex 500 mg ER (ONCE DAILY formulation) PO SCH (08:11)
[2018-02-28] MEDS: Insulin Regular 100 units/ml SC SCH ×4 (08:12→21:02)
--- NOTE | 2018-02-28 08:27 | PCM.PYCHPN ---
Psychiatric Progress Note - Psychiatric Progress Note Patient seen today, length of contact: Pt evaluated, case discussed w/ team, chart reviewed Patient Chief Complaint: "I was having suicidal thoughts." Problems Identified/Issues Discussed: Patient continues to report feeling depressed w/ constricted affect. He is anxious about returning home due to financial stressors and conflict with his landlord. NO AH/VH/SI/HI. He has improved appetite and sleep. Medication Change: No Medical Record Reviewed: Yes Consults ordered or reviewed: Medicine consult, Neurology consult Psychology consult: Pt is a 62 year old male admitted to [facility] and referred to the quality analyst/technical writer for evaluation. Only portions of the DRS was administered due to patient's visual deficits. Pt's Attention skills, Initiation skills and conceptualization skills fell in the Deficient Range. Memory skills fell within normal limits. Construction skills were not administered. Deficits in cognition were evident- particularly conceptualization, and initation. Note, pt reported a CVA last year likely influencing the above. Thank you for this referral, Dr. Marmolejo Mental Status Examination - Cognitive Function Orientation: Person, Place, Situation, Time Memory: Intact Attention: Poor Concentration: Poor Association: WNL Fund of Knowledge: WNL Decription of patient's judgement and insights: Improving I/J - Mood Mood: Depressed - Affect Affect: Constricted, Depressed - Formal Thought Process Formal Thought Process: No Impairment Psychotic Thoughts and Behaviors: Denies acute AH/VH/paranoia - Suicidal Ideation Suicidal Ideation: No - Homicidal Ideation Homicidal Ideation: No Goal/Treatment Plan - Goal/Treatment Plan Need for Continued Stay: Remain at risks for inpatient hospitalization, Severe depression anxiety, Severe functional impairment Progress Toward Problem(s) and Goals/Treatment Plan: Major Depressive Disorder w/ Psychotic Features -Continue Zoloft 50 mg PO Daily -Continue Risperdal 0.25 mg PO HS -Medicine consult -Neurology consult -Psychology consult -PT/OT -Disposition planning Estimated Date of D/C: 03/02/18
[2018-02-28] MEDS ORDERED: Valproic Acid 250 mg/5 ml UD Cup PO ONE (08:40)
--- NOTE | 2018-02-28 09:13 | CP.PCM.PN ---
Subjective - Date & Time of Evaluation Date of Evaluation: 02/28/18 Time of Evaluation: 09:11 - Subjective Subjective: Mr. Nugent was seen and examined at the bedside. He is more calm, cooperative to his ADL's. He denies any headache, dizziness, tolerating PO intake. He is able to move all his extremities. His latest valproic level is 11.8. There was no untoward events overnight. Objective - Vital Signs/Intake and Output Vital Signs (last 24 hours): Temp Pulse Resp BP Pulse Ox 97.1 F L 85 20 130/81 100 02/28/18 06:00 02/28/18 08:12 02/28/18 06:00 02/28/18 08:12 02/23/18 08:01 - Medications Medications: Current Medications Acetaminophen (Tylenol 325mg Tab) 650 mg PO Q4 PRN PRN Reason: Pain, moderate (4-7) Last Admin: 02/27/18 20:09 Dose: 650 mg Al Hydrox/Mg Hydrox/Simethicone (Maalox Plus 30 Ml) 30 ml PO Q4 PRN PRN Reason: Dyspepsia Last Admin: 02/27/18 20:00 Dose: 30 ml Amlodipine Besylate (Norvasc) 10 mg PO DAILY [facility] Last Admin: 02/28/18 08:12 Dose: 10 mg Aspirin (Aspirin Chewable) 81 mg PO DAILY [facility] Last Admin: 02/28/18 08:11 Dose: 81 mg Atorvastatin Calcium (Lipitor) 10 mg PO DAILY [facility] Last Admin: 02/28/18 08:11 Dose: 10 mg Bismuth Subsalicylate (Pepto-Bismol) 524 mg PO Q4 PRN PRN Reason: Diarrhea Divalproex Sodium (Depakote Dr(*Bid*)) 500 mg PO BID [facility] Docusate Sodium (Colace) 100 mg PO HS [facility] Last Admin: 02/27/18 21:03 Dose: 100 mg Dorzolamide HCl (Trusopt) 1 drop OU TID [facility] Last Admin: 02/28/18 08:10 Dose: 1 drop Insulin Detemir (Levemir) 30 units SC HS [facility] Last Admin: 02/27/18 21:03 Dose: 30 units Insulin Human Regular (Humulin R) 0 units SC [facility] PRN Reason: Protocol Last Admin: 02/28/18 08:12 Dose: Not Given Lorazepam (Ativan) 0.5 mg PO HS PRN PRN Reason: Insomnia Stop: 03/09/18 08:48 Lorazepam (Ativan) 0.5 mg PO Q6 PRN PRN Reason: Anixety/Agitation Stop: 03/09/18 08:48 Losartan Potassium (Cozaar) 100 mg PO DAILY [facility] Last Admin: 02/28/18 08:11 Dose: 100 mg Magnesium Hydroxide (Milk Of Magnesia) 30 ml PO HS PRN PRN Reason: Constipation Metformin HCl (Glucophage) 500 mg PO BIDWM [facility] Last Admin: 02/28/18 08:10 Dose: 500 mg Multivitamins/Minerals (Therapeutic-M Tab) 1 tab PO DAILY [facility] Last Admin: 02/28/18 08:10 Dose: 1 tab Oxcarbazepine (Trileptal) 300 mg PO BID [facility] Last Admin: 02/28/18 08:11 Dose: 300 mg Risperidone (Risperdal Tab) 0.25 mg PO HS [facility] Last Admin: 02/27/18 21:03 Dose: 0.25 mg Sertraline HCl (Zoloft) 50 mg PO DAILY [facility] Last Admin: 02/28/18 08:16 Dose: 50 mg Sitagliptin Phosphate (Januvia) 100 mg PO DAILY [facility] Last Admin: 02/28/18 08:10 Dose: 100 mg Trazodone HCl (Desyrel) 50 mg PO HS PRN PRN Reason: insomnia - Labs Labs: 02/24/18 07:14 02/24/18 07:14 - Constitutional Appears: No Acute Distress - Head Exam Head Exam: NORMAL INSPECTION - Eye Exam Pupil Exam: PERRL - Neurological Exam Neurological Exam: Alert, Awake, Oriented x3 Neuro motor strength exam: Left Upper Extremity: 3, Right Upper Extremity: 3, Left Lower Extremity: 3, Right Lower Extremity: 3 Additional comments: neurological unchanged from previous examination. Assessment and Plan (1) Seizure Assessment & Plan: Continue all current medical regimen. Recommend depakote 1000 mg PO for one dose , increase depakote frequency from 500 mg PO daily to BID, valproic level in am, and hydration. Pending EEG Status: Acute
[2018-02-28] MEDS: Divalproex 500 mg DR(BID formulation) PO SCH ×2 (10:10→16:44)
[2018-02-28] MEDS: Insulin Detemir 100 Units/ml Inj SC SCH (21:03)
--- NOTE | 2018-03-01 01:39 | PN ---
DATE: 02/28/2018 SUBJECTIVE: The patient is seen today, 02/28/2018. He is not in any cardiopulmonary distress. PHYSICAL EXAMINATION: VITAL SIGNS: Blood pressure is 124/72, temperature 98.2, respiratory rate 20, and pulse 90. HEENT: The patient is blind in both eyes. NECK: Supple. No JVD. No carotid bruit. No lymph node. No thyromegaly. CHEST AND LUNGS: Bilateral symmetrical expansion. Good air exchange. No rales, no rhonchi. CARDIOVASCULAR SYSTEM: PMI not localized. S1, S2, no additional sounds. ABDOMEN: Normoactive bowel sounds. No tenderness. No organomegaly. No masses. EXTREMITIES: No cyanosis, no clubbing, no edema. REFRACTORY TILE HELPER: Alert, awake, and oriented x3 and the patient has left-sided weakness secondary to previous intracerebral bleeding. ASSESSMENT: Type 2 diabetes mellitus, hypercholesterolemia, blindness of both eyes, status post intracerebral bleeding. PLAN: Continue current medications and management and frequent Accu-Cheks with insulin coverage. We will follow up the patient with you. Vitor Dover MD
--- NOTE | 2018-03-01 08:13 | PCM.PYCHPN ---
Psychiatric Progress Note - Psychiatric Progress Note Patient seen today, length of contact: Pt evaluated, case discussed w/ team, chart reviewed Patient Chief Complaint: "I'm getting better." Problems Identified/Issues Discussed: Patient reports that he feels less depressed. No acute AH/VH/SI/HI. SW to contact APS to determine if patient is safe to be discharged back to home when he is psychiatrically stable. Medication Change: No Medical Record Reviewed: Yes Consults ordered or reviewed: Medicine consult, Neurology consult Psychology consult: Pt is a 62 year old male admitted to [facility] and referred to the loan underwriter for evaluation. Only portions of the DRS was administered due to patient's visual deficits. Pt's Attention skills, Initiation skills and conceptualization skills fell in the Deficient Range. Memory skills fell within normal limits. Construction skills were not administered. Deficits in cognition were evident- particularly conceptualization, and initation. Note, pt reported a CVA last year likely influencing the above. Thank you for this referral, Dr. Marmolejo Mental Status Examination - Cognitive Function Orientation: Person, Place, Situation, Time Memory: Intact Attention: Poor Concentration: Poor Association: WNL Fund of Knowledge: WNL Decription of patient's judgement and insights: Improving I/J - Mood Mood: Depressed - Affect Affect: Constricted - Formal Thought Process Formal Thought Process: No Impairment Psychotic Thoughts and Behaviors: Denies acute AH/VH/paranoia - Suicidal Ideation Suicidal Ideation: No - Homicidal Ideation Homicidal Ideation: No Goal/Treatment Plan - Goal/Treatment Plan Need for Continued Stay: Remain at risks for inpatient hospitalization, Severe depression anxiety, Severe functional impairment Progress Toward Problem(s) and Goals/Treatment Plan: Major Depressive Disorder w/ Psychotic Features -Continue Zoloft 50 mg PO Daily -Continue Risperdal 0.25 mg PO HS -Medicine consult -Neurology consult -Psychology consult -PT/OT -Disposition planning Estimated Date of D/C: 03/02/18
[2018-03-01] MEDS: Insulin Regular 100 units/ml SC SCH ×4 (08:16→21:18)
[2018-03-01] MEDS: Divalproex 500 mg DR(BID formulation) PO SCH ×2 (08:16→17:53)
[2018-03-01] MEDS: Multivitamin With Minerals Tab PO SCH (08:16)
[2018-03-01] MEDS: Dorzolamide 2% Ophth Soln OU SCH ×3 (08:18→17:53)
[2018-03-01] MEDS: Insulin Detemir 100 Units/ml Inj SC SCH (21:17)
[2018-03-01 21:50] LABS: 10-HYDROXYCARBAZEPINE 4.2 mcg/mL (8.0-35.0)
[2018-03-02] MEDS: Divalproex 500 mg DR(BID formulation) PO SCH ×2 (08:26→16:40)
[2018-03-02] MEDS: Multivitamin With Minerals Tab PO SCH (08:29)
[2018-03-02] MEDS: Dorzolamide 2% Ophth Soln OU SCH ×3 (08:30→16:42)
--- NOTE | 2018-03-02 09:19 | PCM.PYCHPN ---
Psychiatric Progress Note - Psychiatric Progress Note Patient seen today, length of contact: Pt evaluated, case discussed w/ team, chart reviewed Patient Chief Complaint: "I'm getting better." Problems Identified/Issues Discussed: Patient reports that his mood continues to improve. No acute AH/VH/SI/HI. SW pending contact w/ APS to determine if patient is safe to be discharged back to home. No AH/VH/SI/HI. Medication Change: No Medical Record Reviewed: Yes Consults ordered or reviewed: Medicine consult, Neurology consult Psychology consult: Pt is a 62 year old male admitted to [facility] and referred to the health technical writer for evaluation. Only portions of the DRS was administered due to patient's visual deficits. Pt's Attention skills, Initiation skills and conceptualization skills fell in the Deficient Range. Memory skills fell within normal limits. Construction skills were not administered. Deficits in cognition were evident- particularly conceptualization, and initation. Note, pt reported a CVA last year likely influencing the above. Thank you for this referral, Dr. Marmolejo Mental Status Examination - Cognitive Function Orientation: Person, Place, Situation, Time Memory: Intact Attention: Poor Concentration: Poor Association: WNL Fund of Knowledge: WNL Decription of patient's judgement and insights: Improving I/J - Mood Mood: Depressed - Affect Affect: Constricted - Formal Thought Process Formal Thought Process: No Impairment Psychotic Thoughts and Behaviors: Denies acute AH/VH/paranoia - Suicidal Ideation Suicidal Ideation: No - Homicidal Ideation Homicidal Ideation: No Goal/Treatment Plan - Goal/Treatment Plan Need for Continued Stay: Severe depression anxiety, Severe functional impairment Progress Toward Problem(s) and Goals/Treatment Plan: Major Depressive Disorder w/ Psychotic Features -Continue Zoloft 50 mg PO Daily -Continue Risperdal 0.25 mg PO HS -Medicine consult -Neurology consult -Psychology consult -PT/OT -Disposition planning- SW attempting to contact APS to determine if patient's home environment is safe for him to return home to Estimated Date of D/C: 03/04/18
[2018-03-02] MEDS: Insulin Regular 100 units/ml SC SCH ×4 (10:47→21:01)
[2018-03-02] MEDS: Insulin Detemir 100 Units/ml Inj SC SCH (21:00)
--- NOTE | 2018-03-02 23:35 | PN ---
DATE: 03/02/2018 DAILY PROGRESS NOTE SUBJECTIVE: The patient is seen today, 03/02/2018. He has low blood sugar of 66 this morning, but the patient was asymptomatic. PHYSICAL EXAMINATION: VITAL SIGNS: Blood pressure 117/64, temperature 97.2, respiratory rate 18, pulse 87. HEENT: Pupil equal and reactive to light. Normal-appearing mucosa of the conjunctivae, oropharynx, and nasal membrane mucosa. NECK: Supple. No JVD. No carotid bruit. No lymph node. No thyromegaly. CHEST AND LUNGS: Bilateral symmetrical expansion. Good air exchange. No rales. No rhonchi. CARDIOVASCULAR SYSTEM: PMI not localized. S1, S2. No additional sounds. ABDOMEN: Normoactive bowel sounds. No tenderness. No organomegaly. No masses. EXTREMITIES: No cyanosis, no clubbing, no edema. CENTRAL NERVOUS SYSTEM: Alert, awake, oriented x3. The patient has left-sided hemiparesis, upper more than lower extremity. ASSESSMENT: Type 2 diabetes mellitus, status post intracerebral bleeding, status post craniotomy with left-sided hemiparesis, hypoglycemia. PLAN: We will decrease Januvia to 50 mg. Continue metformin and monitor blood sugar. We will follow up with you. Vitor Dover MD
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
[2018-03-03] MEDS: Dorzolamide 2% Ophth Soln OU SCH ×3 (08:28→17:56)
[2018-03-03] MEDS: Insulin Regular 100 units/ml SC SCH ×4 (08:32→21:53)
[2018-03-03] MEDS: Divalproex 500 mg DR(BID formulation) PO SCH ×2 (08:35→17:54)
[2018-03-03] MEDS: Multivitamin With Minerals Tab PO SCH (17:55)
[2018-03-03] MEDS: Insulin Detemir 100 Units/ml Inj SC SCH (21:53)
--- NOTE | 2018-03-03 22:01 | PN ---
DATE: 03/03/2018 SUBJECTIVE: The patient is seen today 03/03/2018. He is not in any cardiopulmonary distress. Blood sugar is improved as we decrease Januvia. PHYSICAL EXAMINATION: VITAL SIGNS: Blood pressure 131/83, temperature 97.7, respiratory rate 18 and pulse 72. HEENT: The patient is blind both eyes. Normal-appearing mucosa of the conjunctivae. NECK: Supple. No JVD. No carotid bruit. No lymph node. No thyromegaly. CHEST AND LUNGS: Bilateral symmetrical expansion. Good air exchange. No rales, no rhonchi. CARDIOVASCULAR: PMI not localized, S1 and S2. No additional sounds. ABDOMEN: Normoactive bowel sounds. No tenderness. No organomegaly. No masses. EXTREMITIES: No cyanosis, no clubbing, no edema. BRICK CHIMNEY BUILDER: Alert, awake, oriented x3, left-sided hemiparesis. ASSESSMENT: Type 2 diabetes mellitus status post intracerebral bleeding with left-sided hemiparesis, depression and hypertension. PLAN: Continue current medications and Accu-Cheks with insulin coverage as needed. We will follow up with you. Vitor Dover MD
[2018-03-04] MEDS: Divalproex 500 mg DR(BID formulation) PO SCH ×2 (08:45→17:27)
[2018-03-04] MEDS: Multivitamin With Minerals Tab PO SCH (08:46)
[2018-03-04] MEDS: Insulin Regular 100 units/ml SC SCH ×4 (08:49→21:08)
[2018-03-04] MEDS: Dorzolamide 2% Ophth Soln OU SCH ×3 (08:50→17:29)
--- NOTE | 2018-03-04 09:54 | PCM.PYCHPN ---
Psychiatric Progress Note - Psychiatric Progress Note Patient seen today, length of contact: Pt evaluated, case discussed w/ team, chart reviewed Patient Chief Complaint: "I'm getting better." Problems Identified/Issues Discussed: Patient reports that he continued to have AH yesterday and the Risperdal was increased last night. No current AH. No adverse effects to medications reported. He reports feeling acutely stressed and anxious. No SI/HI. At this time it is not safe to discharge the patient back to home as his family is being evicted from their home. SW to discuss disposition w/ the patient and his family. Medication Change: No Medical Record Reviewed: Yes Consults ordered or reviewed: Medicine consult, Neurology consult Psychology consult: Pt is a 62 year old male admitted to [facility] and referred to the board writer for evaluation. Only portions of the DRS was administered due to patient's visual deficits. Pt's Attention skills, Initiation skills and conceptualization skills fell in the Deficient Range. Memory skills fell within normal limits. Construction skills were not administered. Deficits in cognition were evident- particularly conceptualization, and initation. Note, pt reported a CVA last year likely influencing the above. Thank you for this referral, Dr. Marmolejo Mental Status Examination - Cognitive Function Orientation: Person, Place, Situation, Time Memory: Intact Attention: Poor Concentration: Poor Association: WNL Fund of Knowledge: WNL Decription of patient's judgement and insights: Improving I/J - Mood Mood: Depressed, Anxious - Affect Affect: Constricted - Formal Thought Process Formal Thought Process: No Impairment Psychotic Thoughts and Behaviors: Denies acute AH - Suicidal Ideation Suicidal Ideation: No - Homicidal Ideation Homicidal Ideation: No Goal/Treatment Plan - Goal/Treatment Plan Need for Continued Stay: Severe depression anxiety, Severe functional impairment Progress Toward Problem(s) and Goals/Treatment Plan: Major Depressive Disorder w/ Psychotic Features -Continue Zoloft 50 mg PO Daily -Continue Risperdal 0.5 mg PO HS -Medicine consult -Neurology consult -Psychology consult -PT/OT -Disposition planning Estimated Date of D/C: 03/08/18
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
[2018-03-04] MEDS: Insulin Detemir 100 Units/ml Inj SC SCH (21:08)
[2018-03-05] MEDS: Insulin Regular 100 units/ml SC SCH ×4 (08:29→21:07)
[2018-03-05] MEDS: Divalproex 500 mg DR(BID formulation) PO SCH ×2 (08:30→17:29)
[2018-03-05] MEDS: Multivitamin With Minerals Tab PO SCH (08:30)
[2018-03-05] MEDS: Dorzolamide 2% Ophth Soln OU SCH ×3 (08:32→17:30)
--- NOTE | 2018-03-05 16:09 | PCM.PYCHPN ---
Psychiatric Progress Note - Psychiatric Progress Note Patient seen today, length of contact: Pt evaluated, case discussed w/ team, chart reviewed Patient Chief Complaint: seated in milieu, near nurse's station, requires total care, adherent with medications with assistance Problems Identified/Issues Discussed: alteration cogniiton alteration in self care Medical Problems: per chart Diagnostic Results: per psychiatry per medicine per nursing per social work per recreational therapy DSM 5 Symptoms Update: alteration in mood cognition Medication Change: No Medical Record Reviewed: Yes Consults ordered or reviewed: pt seen by hospitalist Mental Status Examination - Cognitive Function Orientation: Person, Place, Situation, Time Memory: Intact Attention: Poor Concentration: Poor Association: WNL Fund of Knowledge: WNL Decription of patient's judgement and insights: impaired - Mood Mood: Depressed, Anxious - Affect Affect: Constricted - Formal Thought Process Formal Thought Process: No Impairment - Suicidal Ideation Suicidal Ideation: No - Homicidal Ideation Homicidal Ideation: No Goal/Treatment Plan - Goal/Treatment Plan Need for Continued Stay: Severe depression anxiety, Severe functional impairment Progress Toward Problem(s) and Goals/Treatment Plan: inpt milieu adjust medications per clinical status get up slowly falls precaution discharge planning in progress a Estimated Date of D/C: 03/08/18 - Smoking Cessation Smoking Cessation Initiated: No Reason for not providing: pt defers
[2018-03-05] MEDS: Insulin Detemir 100 Units/ml Inj SC SCH (21:07)
--- NOTE | 2018-03-06 00:18 | PN ---
DATE: 03/05/2018 SUBJECTIVE: The patient is seen today 03/05/2018. He is not in any cardiopulmonary distress. PHYSICAL EXAMINATION: VITAL SIGNS: Blood pressure 114/71, temperature 97.7, respiratory rate 20 and pulse 80. HEENT: The patient has blindness in both eyes. Normal-appearing mucosa of the conjunctivae, oropharynx and nasal membrane mucosa. NECK: Supple. No JVD. No carotid bruit. No lymph node. No thyromegaly. CHEST AND LUNGS: Bilateral symmetrical expansion. Good air exchange. No rales, no rhonchi. CARDIOVASCULAR: PMI not localized. S1, S2. No additional sounds. ABDOMEN: Normoactive bowel sounds. No tenderness. No organomegaly. No masses. EXTREMITIES: No cyanosis, no clubbing, no edema. ACCESS REPRESENTATIVE: Alert, awake, oriented x2. The patient has left-sided hemiparesis. ASSESSMENT: Status post intracranial bleeding with left-sided hemiparesis, type 2 diabetes mellitus, blindness. PLAN: Continue Accu-Cheks with insulin coverage and the patient blood sugar is better controlled with decreasing Januvia, we will continue the same. We will follow up with you. Vitor Dover MD
[2018-03-06] MEDS: Insulin Regular 100 units/ml SC SCH ×4 (08:31→21:32)
[2018-03-06] MEDS: Dorzolamide 2% Ophth Soln OU SCH ×3 (08:32→17:18)
[2018-03-06] MEDS: Divalproex 500 mg DR(BID formulation) PO SCH ×2 (08:32→16:46)
[2018-03-06] MEDS: Multivitamin With Minerals Tab PO SCH (08:33)
--- NOTE | 2018-03-06 12:43 | PCM.PYCHPN ---
Psychiatric Progress Note - Psychiatric Progress Note Patient seen today, length of contact: Pt evaluated, case discussed w/ team, chart reviewed Patient Chief Complaint: seated in milieu, near nurse's station, requires total care, adherent with medications with assistance Problems Identified/Issues Discussed: alteration cogniiton alteration in self care Medical Problems: per chart Diagnostic Results: per psychiatry per medicine per nursing per social work per recreational therapy DSM 5 Symptoms Update: some improvement mood requires total care Medication Change: No Medical Record Reviewed: Yes Consults ordered or reviewed: pt seen by hospital Mental Status Examination - Cognitive Function Orientation: Person, Place, Situation, Time Memory: Intact Attention: Poor Concentration: Poor Association: WNL Fund of Knowledge: WNL Decription of patient's judgement and insights: impaired - Mood Mood: Depressed, Anxious - Affect Affect: Constricted - Speech Additional comments: quite at times other times will yell out loud - Formal Thought Process Formal Thought Process: No Impairment - Suicidal Ideation Suicidal Ideation: No - Homicidal Ideation Homicidal Ideation: No Goal/Treatment Plan - Goal/Treatment Plan Need for Continued Stay: Severe depression anxiety, Severe functional impairment Progress Toward Problem(s) and Goals/Treatment Plan: inpt milieu adjust medications per clinical status get up slowly falls precaution discharge planning in progress a Estimated Date of D/C: 03/08/18 - Smoking Cessation Smoking Cessation Initiated: No Reason for not providing: pt defers
[2018-03-06] MEDS: Insulin Detemir 100 Units/ml Inj SC SCH (21:35)
[2018-03-07] MEDS: Multivitamin With Minerals Tab PO SCH (08:25)
[2018-03-07] MEDS: Divalproex 500 mg DR(BID formulation) PO SCH ×2 (08:26→16:54)
[2018-03-07] MEDS: Dorzolamide 2% Ophth Soln OU SCH ×3 (08:27→16:53)
[2018-03-07] MEDS: Insulin Regular 100 units/ml SC SCH ×4 (08:29→21:28)
--- NOTE | 2018-03-07 08:37 | PCM.PYCHPN ---
Psychiatric Progress Note - Psychiatric Progress Note Patient seen today, length of contact: Pt evaluated, case discussed w/ team, chart reviewed Patient Chief Complaint: "I'm getting better." Problems Identified/Issues Discussed: Patient has improved clinically. He denies acute depression/anxiety/AH/VH/SI/ HI. He is at his baseline psychiatrically and is psychiatrically stable for referral to subacute rehab. Medication Change: No Medical Record Reviewed: Yes Consults ordered or reviewed: Medicine consult, Neurology consult Psychology consult: Pt is a 62 year old male admitted to [facility] and referred to the automobile service writer for evaluation. Only portions of the DRS was administered due to patient's visual deficits. Pt's Attention skills, Initiation skills and conceptualization skills fell in the Deficient Range. Memory skills fell within normal limits. Construction skills were not administered. Deficits in cognition were evident- particularly conceptualization, and initation. Note, pt reported a CVA last year likely influencing the above. Thank you for this referral, Dr. Marmolejo Mental Status Examination - Cognitive Function Orientation: Person, Place, Situation, Time Memory: Intact Attention: Poor Concentration: Poor Association: WNL Fund of Knowledge: WNL Decription of patient's judgement and insights: Limited I/J - Mood Mood: Neutral - Affect Affect: Broad - Speech Speech: Stammering - Formal Thought Process Formal Thought Process: No Impairment Psychotic Thoughts and Behaviors: NO AH/VH/paranoia/delusions - Suicidal Ideation Suicidal Ideation: No - Homicidal Ideation Homicidal Ideation: No Goal/Treatment Plan - Goal/Treatment Plan Need for Continued Stay: Severe functional impairment Progress Toward Problem(s) and Goals/Treatment Plan: Major Depressive Disorder w/ Psychotic Features; Patient is psychiatrically stable for referral to subacute rehab -Continue Zoloft 50 mg PO Daily -Continue Risperdal 0.5 mg PO HS -Medicine consult -Neurology consult -Psychology consult -PT/OT -Disposition planning- referral to subacute rehab Estimated Date of D/C: 03/11/18
[2018-03-07] MEDS: Insulin Detemir 100 Units/ml Inj SC SCH (21:32)
--- NOTE | 2018-03-08 08:30 | PCM.PYCHPN ---
Psychiatric Progress Note - Psychiatric Progress Note Patient seen today, length of contact: Pt evaluated, case discussed w/ team, chart reviewed Patient Chief Complaint: "I'm getting better." Problems Identified/Issues Discussed: No new events overnight. He denies acute depression/anxiety/AH/VH/SI/HI. He is at his baseline psychiatrically and is psychiatrically stable for referral to subacute rehab. Medication Change: No Medical Record Reviewed: Yes Mental Status Examination - Cognitive Function Orientation: Person, Place, Situation, Time Memory: Intact Attention: Poor Concentration: Poor Association: WNL Fund of Knowledge: WNL Decription of patient's judgement and insights: Limited I/J - Mood Mood: Neutral - Affect Affect: Broad - Speech Speech: Stammering - Formal Thought Process Formal Thought Process: No Impairment Psychotic Thoughts and Behaviors: NO AH/VH/paranoia/delusions - Suicidal Ideation Suicidal Ideation: No - Homicidal Ideation Homicidal Ideation: No Goal/Treatment Plan - Goal/Treatment Plan Need for Continued Stay: Severe functional impairment Progress Toward Problem(s) and Goals/Treatment Plan: Major Depressive Disorder w/ Psychotic Features; Patient is psychiatrically stable for referral to subacute rehab -Continue Zoloft 50 mg PO Daily -Continue Risperdal 0.5 mg PO HS -Medicine consult -Neurology consult -Psychology consult -PT/OT -Disposition planning- referral to subacute rehab Estimated Date of D/C: 03/11/18
--- NOTE | 2018-03-08 08:52 | PN ---
DATE: 03/07/2018 DAILY PROGRESS NOTE SUBJECTIVE: The patient is seen today, 03/07/2018. He is not in any cardiopulmonary distress. PHYSICAL EXAMINATION: VITAL SIGNS: Blood pressure 133/75, temperature 98.6, respiratory rate 19, and pulse 90. HEENT: Pupils are equal and reactive to light. Normal-appearing mucosa of the conjunctivae, oropharynx, and nasal membrane mucosa. NECK: Supple. No JVD. No carotid bruit. No lymph node. No thyromegaly. CHEST AND LUNGS: Bilateral symmetrical expansion. Good air exchange. No rales. No rhonchi. CARDIOVASCULAR SYSTEM: PMI not localized. S1, S2. No additional sounds. ABDOMEN: Normoactive bowel sounds. No tenderness. No organomegaly. No masses. EXTREMITIES: No cyanosis. No clubbing. No edema. CENTRAL NERVOUS SYSTEM: Alert, awake, oriented x3. The patient has left-sided hemiparesis. 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 PLAN: Continue current medications and management. I could check with insulin coverage as needed. Physical therapy. Vitor Dover MD
[2018-03-08] MEDS: Dorzolamide 2% Ophth Soln OU SCH ×3 (09:18→17:08)
[2018-03-08] MEDS: Multivitamin With Minerals Tab PO SCH (09:18)
[2018-03-08] MEDS: Insulin Regular 100 units/ml SC SCH ×4 (09:20→21:29)
[2018-03-08] MEDS: Divalproex 500 mg DR(BID formulation) PO SCH ×2 (09:21→17:07)
[2018-03-08] MEDS: Insulin Detemir 100 Units/ml Inj SC SCH (21:29)
--- NOTE | 2018-03-09 08:00 | PCM.PYCHPN ---
Psychiatric Progress Note - Psychiatric Progress Note Patient seen today, length of contact: Pt evaluated, case discussed w/ team, chart reviewed Patient Chief Complaint: "I'm getting better." Problems Identified/Issues Discussed: No new events. He denies acute depression/anxiety/AH/VH/SI/HI. He is at his baseline psychiatrically and is psychiatrically stable for referral to subacute rehab. Medication Change: No Medical Record Reviewed: Yes Consults ordered or reviewed: Medicine consult, Neurology consult Psychology consult: Pt is a 62 year old male admitted to [facility] and referred to the data analyst report writer for evaluation. Only portions of the DRS was administered due to patient's visual deficits. Pt's Attention skills, Initiation skills and conceptualization skills fell in the Deficient Range. Memory skills fell within normal limits. Construction skills were not administered. Deficits in cognition were evident- particularly conceptualization, and initation. Note, pt reported a CVA last year likely influencing the above. Thank you for this referral, Dr. Marmolejo Mental Status Examination - Cognitive Function Orientation: Person, Place, Situation, Time Memory: Intact Attention: Poor Concentration: Poor Association: WNL Fund of Knowledge: WNL Decription of patient's judgement and insights: Limited I/J - Mood Mood: Neutral - Affect Affect: Broad - Speech Speech: Stammering - Formal Thought Process Formal Thought Process: No Impairment Psychotic Thoughts and Behaviors: NO AH/VH/paranoia/delusions - Suicidal Ideation Suicidal Ideation: No - Homicidal Ideation Homicidal Ideation: No Goal/Treatment Plan - Goal/Treatment Plan Need for Continued Stay: Severe functional impairment Progress Toward Problem(s) and Goals/Treatment Plan: Major Depressive Disorder w/ Psychotic Features; Patient is psychiatrically stable for referral to subacute rehab -Continue Zoloft 50 mg PO Daily -Continue Risperdal 0.5 mg PO HS -Medicine consult -Neurology consult -Psychology consult -PT/OT -Disposition planning- referral to subacute rehab Estimated Date of D/C: 03/11/18
[2018-03-09] MEDS: Dorzolamide 2% Ophth Soln OU SCH ×3 (08:26→17:11)
[2018-03-09] MEDS: Multivitamin With Minerals Tab PO SCH (08:28)
[2018-03-09] MEDS: Divalproex 500 mg DR(BID formulation) PO SCH ×2 (08:28→17:09)
[2018-03-09] MEDS: Insulin Regular 100 units/ml SC SCH ×4 (08:31→21:03)
[2018-03-09 16:12] VITALS: RESP 18
[2018-03-09] MEDS: Insulin Detemir 100 Units/ml Inj SC SCH (21:02)
[2018-03-10 06:51] VITALS: BP 132/77; PULSE 82; TEMP 98.1
--- NOTE | 2018-03-10 08:00 | PCM.PYCHPN ---
Psychiatric Progress Note - Psychiatric Progress Note Patient seen today, length of contact: Pt evaluated, case discussed w/ team, chart reviewed Patient Chief Complaint: "I'm getting better." Problems Identified/Issues Discussed: No new events overnight. He denies acute depression/anxiety/AH/VH/SI/HI. He is at his baseline psychiatrically and is psychiatrically stable for referral to subacute rehab. Medication Change: No Medical Record Reviewed: Yes Consults ordered or reviewed: Medicine consult, Neurology consult Psychology consult: Pt is a 62 year old male admitted to [facility] and referred to the screen writer for evaluation. Only portions of the DRS was administered due to patient's visual deficits. Pt's Attention skills, Initiation skills and conceptualization skills fell in the Deficient Range. Memory skills fell within normal limits. Construction skills were not administered. Deficits in cognition were evident- particularly conceptualization, and initation. Note, pt reported a CVA last year likely influencing the above. Thank you for this referral, Dr. Marmolejo Mental Status Examination - Cognitive Function Orientation: Person, Place, Situation, Time Memory: Intact Attention: Poor Concentration: Poor Association: WNL Fund of Knowledge: WNL Decription of patient's judgement and insights: Limited I/J - Mood Mood: Neutral - Affect Affect: Broad - Speech Speech: Stammering - Formal Thought Process Formal Thought Process: No Impairment Psychotic Thoughts and Behaviors: NO AH/VH/paranoia/delusions - Suicidal Ideation Suicidal Ideation: No - Homicidal Ideation Homicidal Ideation: No Goal/Treatment Plan - Goal/Treatment Plan Need for Continued Stay: Severe functional impairment Progress Toward Problem(s) and Goals/Treatment Plan: Major Depressive Disorder w/ Psychotic Features; Patient is psychiatrically stable for referral to subacute rehab -Continue Zoloft 50 mg PO Daily -Continue Risperdal 0.5 mg PO HS -Medicine consult -Neurology consult -Psychology consult -PT/OT -Disposition planning- referral to subacute rehab Estimated Date of D/C: 03/11/18
[2018-03-10] MEDS: Insulin Regular 100 units/ml SC SCH ×3 (09:27→16:55)
[2018-03-10] MEDS: Multivitamin With Minerals Tab PO SCH (09:28)
[2018-03-10] MEDS: Dorzolamide 2% Ophth Soln OU SCH ×3 (09:29→17:18)
[2018-03-10] MEDS: Divalproex 500 mg DR(BID formulation) PO SCH ×2 (09:29→16:55)
--- NOTE | 2018-03-10 11:47 | PCM.PYCHDC ---
Mental Status Examination - Mental Status Examination Orientation: Person, Place, Situation, Time Memory: Impaired Mood: Neutral Affect: Broad Speech: Appropriate Attention: Poor Concentration: Poor Association: WNL Fund of Knowledge: Poor Formal Thought Process: No Impairment Description of patient's judgement and insight: Limited I/J due to neurocognitive deficits Psychotic Thoughts and Behaviors: NO AH/VH/paranoia/delusions Suicidal Ideation: No Current Homicidal Ideation?: No Discharge Summary - Discharge Note Reason for Hospitalization: HPI: 62 yo male w/ h/o brain tumor s/p resection in 2009, CVA in 2017 w/ Left hemiparesis, HTN, HLD, Seizure disorder, presents w/ suicidal ideation w/ plan to overdose on pills, worsening depression, worsening anxiety, sleep disturbances, and auditory hallucinations of his landlord saying "I'm going to kill you." He reports feeling stressed due to possible eviction from his home. A + O x 3. PPHx: H/o treatment w/ Zoloft, but stopped taking it for unclear reasons; patient unable to explain why he stopped taking it. No history of psychiatric admission or suicide attempts. PMHx: Brain tumor s/p resection in 2009, CVA in 2016 w/ Left hemiparesis, HTN, HLD, Seizure disorder PSHx: Right frontal craniotomy, tonsilectomy, unknown right eye procedure FHx: Diabetes Social: Denies tobacco, EtOH or illicit drug use; lives w/ and daughter Laboratory Data: Abnormal Lab Results 03/09/18 03/09/18 03/09/18 11:43 15:28 19:56 POC Glucose (mg/dL) 126 H 162 H 126 H 03/10/18 03/10/18 05:41 06:13 POC Glucose (mg/dL) 54 L 87 VPA 36.5 on 03/01/18 10- Hydroxycarbazepine 4.2 on 02/24/18 Consultations:: List each consultation separately and include: 1. Reason for request. 2. Findings. 3. Follow-up Consultations: Medicine consult, Neurology consult Psychology consult: Pt is a 62 year old male admitted to [facility] and referred to the report writer for evaluation. Only portions of the DRS was administered due to patient's visual deficits. Pt's Attention skills, Initiation skills and conceptualization skills fell in the Deficient Range. Memory skills fell within normal limits. Construction skills were not administered. Deficits in cognition were evident- particularly conceptualization, and initation. Note, pt reported a CVA last year likely influencing the above. Thank you for this referral, Dr. Marmolejo Summary of Hospital Course include:: 1. Description of specific treatment plan utilized for patients during their course of treatmen. 2. Summarize the time- course for resolution of acute symptoms and/or regressed behaviors. 3. Describe issues identified and worked on during hospitalization. 4. Describe medication utilized. 5. Describe medical problems identified and treated. 6. Reassessment of suicide risk Summary of Hospital Course: Patient was admitted to the psychiatry unit. Individual and group therapy were provided. Patient was stabilized on Zoloft 50 mg PO Daily and Risperdal 0.5 mg PO HS. He denies current depression/anxiety/AH/VH/SI/HI. He is currently psychiatrically stable for discharge. - Diagnosis (1) Major depressive disorder with psychotic features Current Visit: No Status: Resolved - Final Diagnosis (DSM 5) Condition upon Discharge: STABLE DSM 5: Major Depressive Disorder w/ Psychotic Features Disposition: TRANSF TO SNF Follow-up Treatment Plan: Major Depressive Disorder w/ Psychotic Features; Patient is psychiatrically stable for discharge to subacute rehab -Continue Zoloft 50 mg PO Daily -Continue Risperdal 0.5 mg PO HS -Discharge to subacute rehab - Smoking Cessation Smoking Cessation Medication prescribed: No Reason for not providing: Not indicated - Antipsychotic Medications Pt discharged on 2 or more routine antipsychotic medications: No
--- NOTE | 2018-03-10 18:05 | PN ---
DATE: 03/10/2018 SUBJECTIVE: The patient is seen today, 03/10/2018. He is not in any cardiopulmonary distress. Blood sugar is better controlled. PHYSICAL EXAMINATION: VITAL SIGNS: Blood pressure is 132/77, temperature 98.1, respiratory rate 18, and pulse 82. HEENT: The patient is blind in both eyes. NECK: Supple. No JVD. No carotid bruit. No lymph node. No thyromegaly. CHEST AND LUNGS: Bilateral symmetrical expansion. Good air exchange. No rales, no rhonchi. CARDIOVASCULAR SYSTEM: PMI not localized. S1 and S2. No additional sounds. ABDOMEN: Normoactive bowel sounds. No tenderness. No organomegaly. No masses. EXTREMITIES: No cyanosis, no clubbing, no edema. DRIVER'S EDUCATION INSTRUCTOR: Alert, awake, oriented x3. Positive left hemiparesis. ASSESSMENT: Type 2 diabetes mellitus, status post intracranial hemorrhage, craniotomy, and left-sided hemiparesis. PLAN: Continue current diabetes management and Accu-Cheks with insulin coverage as needed. The patient is for discharge planning. We will follow with you. Vitor Dover MD
== END 2018-03-10 18:00 | DRG 885 ==
LOC: H.ER 07:53 → H.ERHOLD 08:05 → H.STEP 08:36
PROVIDERS: ADMIT Psychiatry & Neurology Psychiatry; ATTEND Psychiatry & Neurology Psychiatry
PROC: GZHZZZZ Group Psychotherapy (ICD-10-PCS; principal; 2018-02-23)
DX: F32.3 Major depressive disorder, single episode, severe with psychotic features (principal); R45.851 Suicidal ideations; H54.8 Legal blindness, as defined in USA; E78.5 Hyperlipidemia, unspecified; I10 Essential (primary) hypertension; G40.909 Epilepsy, unspecified, not intractable, without status epilepticus; E78.00 Pure hypercholesterolemia, unspecified; E11.649 Type 2 diabetes mellitus with hypoglycemia without coma; I69.334 Monoplegia of upper limb following cerebral infarction affecting left non-dominant side